=== PATIENT | male | born 1935 | race Caucasian/White ===

== ENCOUNTER 2021-03-27 12:07 | Emergency (ER) | payer MEDICARE, OTHER | END 2021-03-27 13:30 | disposition home or self-care (01) | LOC: BURERS 12:07 | DX: R04.0 Epistaxis (principal); E78.5 Hyperlipidemia, unspecified; I10 Essential (primary) hypertension; Z79.899 Other long term (current) drug therapy | CPT/HCPCS: 30903 ==

== ENCOUNTER 2021-07-23 18:00 | Emergency (ER) | payer MEDICARE, OTHER ==
[2021-07-23] MEDS ORDERED: Cephalexin 250 MG CAP ONE (18:28)
== END 2021-07-23 19:00 | disposition home or self-care (01) ==
LOC: BURERS 18:00
DX: R04.0 Epistaxis (principal); I10 Essential (primary) hypertension; E78.5 Hyperlipidemia, unspecified; M10.9 Gout, unspecified; Z85.46 Personal history of malignant neoplasm of prostate
CPT/HCPCS: 30903

== ENCOUNTER 2021-12-05 16:26 | Outpatient (CLI) | payer MEDICARE, OTHER | END 2021-12-05 16:27 | disposition home or self-care (01) | LOC: BURRAD 16:26 | DX: S69.92XD Unspecified injury of left wrist, hand and finger(s), subsequent encounter (principal) ==

== ENCOUNTER 2021-12-29 00:32 | Emergency (ER) | payer MEDICARE, OTHER ==
[2021-12-29] MEDS ORDERED: HYDROcodone/Acetaminophen 5/325 mg Tablet ONE (01:26)
== END 2021-12-29 02:10 | disposition home or self-care (01) ==
LOC: BURERS 00:32
DX: R04.0 Epistaxis (principal); I11.0 Hypertensive heart disease with heart failure; I50.9 Heart failure, unspecified; E78.5 Hyperlipidemia, unspecified; Z79.899 Other long term (current) drug therapy
CPT/HCPCS: 30901

== ENCOUNTER 2022-09-23 12:15 | Emergency (ER) | payer MEDICARE, OTHER ==
[2022-09-23] MEDS ORDERED: Tranexamic Acid 1,000 MG/10 ML VIAL ONE (13:09)
[2022-09-23 14:57] LABS: #Eosinphils 0.1 thou/uL (0.0-0.7); #Lymphocytes 1.5 thou/uL (1.20-3.40); #Monocytes 0.4 thou/uL (0.11-0.59); %Basophils 0.7 % (0.0-1.0); %Eosinophils 3.1 % (0.0-10.0); %Lymphocytes 36.9 % (21.0-51.0); %Monocytes 9.9 % (0.0-10.0); %Neutrophils 49.3 % (42.0-75.0); Hemoglobin 10.6 g/dL (14.0-18.0); Mean Corpuscular HGB CONC 30.5 g/dL (32.0-36.0); Mean Corpuscular Hemoglobin 30.8 pg (27.0-31.0); Mean Platelet Volume 6.9 fL (7.4-10.4); Platelet Count 96 10x3/uL (130-400); Red Blood Cell (RBC) Count 3.45 mill/uL (4.70-6.10); White Blood Cell (WBC) Count 4.1 10x3/uL (4.8-10.8)
[2022-09-23 15:02] LABS: INR-International Normal Ratio 1.1; PTT 32.6 sec (22.9-36.1); Prothrombin Time 14.9 sec (12.0-14.7)
[2022-09-23 15:07] LABS: ALT (SGPT) 18 U/L (8-55); AST (SGOT) 27 U/L (5-34); Albumin 3.7 g/dL (3.4-4.8); Alkaline Phosphatase 124 U/L (40-110); Anion Gap 12 mmol/L (10-20); BUN (Urea Nitrogen) 19 mg/dL (8.4-25.7); Bilirubin, Total 0.9 mg/dL (0.2-1.2); Calc. Creatinine Clearance 0 mL/min (70-130); Calcium 8.9 mg/dL (7.8-10.44); Carbon Dioxide 24 mmol/L (23-31); Chloride 112 mmol/L (98-107); Estimated GFR 84; Globulin 3.6 g/dL (2.4-3.5); Glucose 96 mg/dL (83-110); Potassium 3.8 mmol/L (3.5-5.1); Protein, Total 7.3 g/dL (5.8-8.1); Sodium 144 mmol/L (136-145)
[2022-09-23] MEDS ORDERED: Amoxicillin/Potassium Clav 875 MG TAB ONE (15:17)
[2022-09-23 15:21] LABS: Platelet Morphology Comment Appears Decreased; RBC Morphology Normal
[2022-09-23 15:23] LABS: MDiff Complete? YES
== END 2022-09-23 15:55 | disposition home or self-care (01) ==
LOC: BURERS 12:15
DX: R04.0 Epistaxis (principal); I25.10 Atherosclerotic heart disease of native coronary artery without angina pectoris; I11.0 Hypertensive heart disease with heart failure; I50.9 Heart failure, unspecified; E78.5 Hyperlipidemia, unspecified; Z79.899 Other long term (current) drug therapy
CPT/HCPCS: 30903; 80053; 85025; 85610; 85730

== ENCOUNTER 2024-02-29 11:20 | Emergency (ER) | payer MEDICARE ==
[2024-02-29 11:52] LABS: #Eosinphils 0.2 thou/uL (0.0-0.7); #Lymphocytes 1.4 thou/uL (1.20-3.40); #Monocytes 0.5 thou/uL (0.11-0.59); #Neutrophils 2.2 thou/uL (1.40-6.50); %Basophils 1.2 % (0.0-1.0); %Eosinophils 4.1 % (0.0-10.0); %Lymphocytes 32.4 % (21.0-51.0); %Monocytes 11.3 % (0.0-10.0); Hematocrit 39.1 % (42.0-52.0); Hemoglobin 12.6 g/dL (14.0-18.0); Mean Corpuscular HGB CONC 32.2 g/dL (32.0-36.0); Mean Corpuscular Hemoglobin 33.5 pg (27.0-31.0); Mean Platelet Volume 6.1 fL (7.4-10.4); Platelet Count 81 10x3/uL (130-400); RBC Distribution Width 13.3 % (11.5-14.5); Red Blood Cell (RBC) Count 3.76 mill/uL (4.70-6.10); White Blood Cell (WBC) Count 4.3 10x3/uL (4.8-10.8)
[2024-02-29 11:54] LABS: MDiff Complete? YES
[2024-02-29 11:55] LABS: INR-International Normal Ratio 1.2; PTT 33.7 sec (22.9-36.1); Prothrombin Time 15.4 sec (12.0-14.7)
[2024-02-29 12:03] LABS: ALT (SGPT) 16 U/L (8-55); AST (SGOT) 28 U/L (5-34); Albumin 3.4 g/dL (3.4-4.8); Alkaline Phosphatase 129 U/L (40-110); Anion Gap 13 mmol/L (10-20); BUN (Urea Nitrogen) 29 mg/dL (8.4-25.7); Bilirubin, Total 1.8 mg/dL (0.2-1.2); Calc. Creatinine Clearance 0 mL/min (70-130); Calcium 9.2 mg/dL (7.8-10.44); Carbon Dioxide 24 mmol/L (23-31); Chloride 109 mmol/L (98-107); Estimated GFR 76; Globulin 3.4 g/dL (2.4-3.5); Glucose 88 mg/dL (83-110); Protein, Total 6.8 g/dL (5.8-8.1); Sodium 142 mmol/L (136-145)
[2024-02-29] MEDS ORDERED: Oxymetazoline HCl 0.05% (30 ML BOT) ONE (12:27)
== END 2024-02-29 14:35 | disposition home or self-care (01) ==
LOC: BURERS 11:20
DX: R04.0 Epistaxis (principal); I11.0 Hypertensive heart disease with heart failure; I50.9 Heart failure, unspecified; I48.91 Unspecified atrial fibrillation; I25.10 Atherosclerotic heart disease of native coronary artery without angina pectoris; Z55.6 Problems related to health literacy
CPT/HCPCS: 30901; 36415; 80053; 85025; 85610; 85730